=== PATIENT | male | born 1980 | race Caucasian/White ===

== ENCOUNTER → 2020-05-14 | Outpatient (CLI) | payer OTHER ==
[~2020-05-14] MED LIST: ADVIL200 MG PO; LISINOPRIL20 MG PO; MOTRIN800 MG PO; TYLENOL650 MG PO; VICODIN 5/500 505 MG PO
== END | disposition home or self-care (01) ==
LOC: COVID19 12:29
PROVIDERS: ATTEND Social Worker Clinical
DX: U07.1 COVID-19 (principal)